=== PATIENT | female | born 1960 | race Caucasian/White ===

== ENCOUNTER → 2021-02-07 07:37 | Outpatient (CLI) | payer BC, SELFPAY ==
--- NOTE | ~2021-02-07 | XR_ITS ---
EXAMINATION: XR knee LT 2V DATE: 02/07/2021 07:53 INDICATION: Left knee pain. TECHNIQUE: 2 views of left knee standing were obtained. COMPARISON: None. FINDINGS: Bone alignment is normal. No fracture. There is mild osteoarthritis of medial and lateral c ompartments. No knee joint effusion. IMPRESSION: 1. Mild left knee osteoarthritis. Reviewed, dictated and finalized at location A.
--- NOTE | ~2021-02-07 | XR_ITS ---
EXAMINATION: XR knee RT 2V DATE: 02/07/2021 07:53 INDICATION: Right knee pain. TECHNIQUE: 2 views of right knee standing were obtained. COMPARISON: None. FINDINGS: Bone alignment is normal. No fracture. There is moderate osteoarthritis of medial and mild osteoarthritis of lateral compartment. No knee joint effusion. IMPRESSION: 1. Moderate right knee osteoarthritis. Reviewed, dictated and finalized at location A.
== END ==
PROVIDERS: PCP Family Medicine; Visit Provider Physician Assistant Medical
DX: M17.0 Bilateral primary osteoarthritis of knee (principal)
CPT/HCPCS: 73560

== ENCOUNTER → 2022-05-06 16:17 | Outpatient (CLI) | payer BC, SELFPAY ==
--- NOTE | ~2022-05-06 | XR_ITS ---
XR knee RT 3V 05/06/2022 16:28 Indication: Right knee pain Procedure: 3 views right knee Comparison: 02/07/2021 Findings: There is mild osteoarthritis of the right knee. No fracture, subluxation or dislocation. No joint effusion. No foreign bodies. Impression: 1: Mild osteoarthritis of the right knee. Reviewed, dictated and finalized at location B. Impression: 1: Mild osteoarthritis of the right knee.
== END ==
PROVIDERS: PCP Family Medicine; Visit Provider Nurse Practitioner Family
DX: M17.11 Unilateral primary osteoarthritis, right knee (principal)
CPT/HCPCS: 73562

== ENCOUNTER 2023-05-02 09:10 | Emergency (ER) | payer BC, SELFPAY ==
--- NOTE | 2023-05-02 09:15 | ED.BACK ---
HPI - Back Pain/Injury General Chief Complaint: Back Pain/Injury Stated Complaint: lower back pain left side/ left leg pain Time Seen by Provider: 05/02/23 10:12 Source: patient and RN notes reviewed Mode of arrival: ambulatory Limitations: no limitations History of Present Illness HPI Narrative: 62-year-old female presents concern for left lower back pain. Reports symptoms started about a month ago when she was on a long road trip to [place]. Reports it has been on and off since then. Reports over the last week it has been constant. She reports it is radiating down her left leg. She denies loss of bowel or bladder function, denies, perianal anesthesia, weakness in any extremity, denies abdominal pain or spinal tenderness. She reports history of problems with her back, she has had several back surgeries and has hardware in her back. She does have a neurologist that she has not had to see him in a while. She reports she has been using ibuprofen, meloxicam, muscle rubs, heat, ice without relief. She reports sitting exacerbates pain, moving positions exacerbates pain. MD elicited complaint: back pain Related Data Allergies Allergy/AdvReac Type Severity Reaction Status Date / Time prochlorperazine Allergy Severe Swelling Verified 05/02/23 09:48 promethazine Allergy Severe Swelling Verified 05/02/23 09:48 Review of Systems Review of Systems: CONSTITUTIONAL: Denies malaise, chills, sweats, or fever. CARDIOVASCULAR: Denies chest pain, palpitations, or edema. RESPIRATORY: Denies cough or dyspnea. GASTROINTESTINAL: Denies abdominal pain, nausea, vomiting, diarrhea, loss of bowel function GENITOURINARY: Denies dysuria, hematuria, frequency, loss of bladder function. SKIN: Denies rash or itching. MUSCULOSKELETAL: Reports left low back pain radiating to the left leg NEUROLOGIC: Denies numbness, weakness, or headache. All systems reviewed & are unremarkable except as noted in HPI and below PMFSH Past Medical History Medical History Adult BMI 36.0-36.9 kg/sq m BMI 35.0-35.9,adult Family History Family History Father Family history of coronary artery disease Hypertension Mother Thyroid activity decreased Sibling Hypertension Diabetes mellitus Social History Social History Smoking status: Never smoker Second hand tobacco smoke exposure: No Alcohol intake: never Substance use: never Substance use type: does not use Lack of Transportation: No Lack of Food: Never True Current Housing: I Have Housing Concerned About Future Housing: No Difficulty Paying Gas/Electric Bills: No Difficulty Paying for Meds: No Currently Unemployed: No Education: High School Diploma/GED Difficulty w/ Childcare or Family Care: No Living arrangements: with family Occupation/Education: occupation 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 Gender identity (if verbalized by the patient): Female Comments At time of signature, agree with nursing past medical, surgical, social and family history. There is no relevant family history pertinent to the presenting complaint Exam Narrative: GENERAL: Well-appearing, well-nourished, and in no acute distress. HEAD: Normocephalic, atraumatic. EYES: PERRLA and EOMI. NECK: Supple. No lymphadenopathy. CHEST: Clear to auscultation. No respiratory distress. HEART: Regular rate and rhythm. Distal pulses palpable and equal, cap refill <3 seconds ABDOMEN: Soft, nontender, nondistended, normal active bowel sounds, no palpable or pulsatile masses. No CVA tenderness MUSCULOSKELETAL: Normal range of motion and strength in all extremities; 5/5 strength with hip flexion and extension, dorsiflexion and extension, knee flexion and extension, plantar flexion and exte
[2023-05-02 09:30] VITALS: BP 122/74; PULSE 74; RESP 16; TEMP 36.3; O2SAT 99
== END 2023-05-02 10:25 | disposition home or self-care (01) ==
PROVIDERS: Emergency Provider Nurse Practitioner; PCP Family Medicine
DX: M54.50 Low back pain, unspecified (principal)
CPT/HCPCS: 99213; G0463

== ENCOUNTER 2023-05-12 16:02 | Emergency (ER) | payer BC, SELFPAY ==
--- NOTE | 2023-05-12 16:08 | ED.ALLEREA ---
HPI - Allergic Reaction General Chief complaint: Allergic Reaction Stated complaint: Allergic Reaction Time Seen by Provider: 05/12/23 16:12 Source: patient and RN notes reviewed Mode of arrival: ambulatory Limitations: no limitations History of Present Illness HPI narrative: 62-year-old female presents with concern for allergic reaction. She reports she ate tuna for lunch today and short while later began having an upset stomach, she then developed a rash on her bilateral arms. She reports now her tongue feels itchy. She denies vomiting or diarrhea. Denies lip swelling, tongue swelling. She denies any history of allergies to tuna. complaint: allergic reaction Related Data Allergies Allergy/AdvReac Type Severity Reaction Status Date / Time prochlorperazine Allergy Severe Swelling Verified 05/12/23 16:16 promethazine Allergy Severe Swelling Verified 05/12/23 16:16 Review of Systems Review of Systems: CONSTITUTIONAL: Denies malaise, chills, sweats, or fever. EYES: Denies redness, or discharge. ENT: Denies rhinorrhea, congestion, swollen lips, swollen tongue. Reports itchy tongue CARDIOVASCULAR: Denies chest pain, palpitations, or edema. RESPIRATORY: Denies cough or dyspnea. GASTROINTESTINAL: Denies abdominal pain, nausea, vomiting SKIN: Reports rash bilateral forearms MUSCULOSKELETAL: Denies joint pain or myalgia. NEUROLOGIC: Denies headache. All systems reviewed & are unremarkable except as noted in HPI and below PMFSH Past Medical History Medical History Adult BMI 36.0-36.9 kg/sq m BMI 33.0-33.9,adult BMI 35.0-35.9,adult Family History Family History Father Family history of coronary artery disease Hypertension Mother Thyroid activity decreased Sibling Hypertension Diabetes mellitus Social History Social History Smoking status: Never smoker Second hand tobacco smoke exposure: No Alcohol intake: never Substance use: never Substance use type: does not use Lack of Transportation: No Lack of Food: Never True Current Housing: I Have Housing Concerned About Future Housing: No Difficulty Paying Gas/Electric Bills: No Difficulty Paying for Meds: No Currently Unemployed: No Education: High School Diploma/GED Difficulty w/ Childcare or Family Care: No Living arrangements: with family Occupation/Education: occupation 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 Gender identity (if verbalized by the patient): Female Comments At time of signature, agree with nursing past medical, surgical, social and family history. There is no relevant family history pertinent to the presenting complaint Exam Narrative: GENERAL: Well-appearing, well-nourished, and in no acute distress. HEAD: Normocephalic, atraumatic. EYES: PERRLA, conjunctivae clear, and EOMI. ENT: Mucous membranes moist. Oropharynx and tongue without edema, erythema or lesions. NECK: Supple. No lymphadenopathy CHEST: Clear to auscultation. No respiratory distress. HEART: Regular rate and rhythm. SKIN: Warm, dry. Urticarial rash noted on bilateral forearms, no other rash noted NEURO: Alert and oriented x3. PSYCH: Normal mood and affect Course Course Emergency Course: Patient is aware of diagnosis, understands and agrees to treatment plan. Anticipatory guidance given. Patient agrees to follow-up as directed and is aware of reasons to seek care at the emergency department. Portions of this record may have been created with voice recognition software Level of Care: Express Care Visit Vital Signs Vital signs: Reviewed. MDM - Allergic Reaction MDM Narrative Medical decision making narrative: No soft palate or uvula edema, no tongue or lip edema or other mucosal involvement, no respirat
[2023-05-12 16:15] VITALS: BP 130/76; PULSE 80; RESP 16; TEMP 36.8; O2SAT 100
[2023-05-12] MEDS: diphenhydrAMINE HCL ELIXIR 12.5 MG/5 ML UDC 25 MG PO (16:29)
[2023-05-12] MEDS: methylPREDNISolone SOD SUCC 125 MG VIAL IM (16:29)
== END 2023-05-12 16:57 | disposition home or self-care (01) ==
PROVIDERS: Emergency Provider Nurse Practitioner; PCP Family Medicine
DX: L50.0 Allergic urticaria (principal)
CPT/HCPCS: 96372; 99213; A9270; G0463; J2930

== ENCOUNTER 2023-05-19 14:24 | Outpatient (RCR) | payer BC, SELFPAY ==
--- NOTE | 2023-05-19 16:24 | PTOPEVAL1 ---
Assessment and note entered by Alvino Samano, PT, DPT Evaluation Information Assessment Status Evaluation Diagnosis L lower back pain Subjective Information Pt states she has 6 screws and 2 rods in her back so she knows what back pain in and states this is not back pain, that this is her sciatic nerve. She states she probably would not have come but she is having numbness in the front of her L thigh. She states they recently did a long road trip and it has been bothering her since. Reported Pain Level Pain Score 0: Self Report Assessment PT Clinical Summary Hollie presents to therapy today for her initial evaluation with a diagnosis of jarrett back pain and sciatic nerve irritation. Today she demonstrates tenderness to palpation to the L piriformis and her primary pain is reproduced with a passive piriformis stretch. Today she was instructed in a HEP to address the deficits noted above. She plans to complete these and follow up in a month if needed. Plan of Care PT Services Indicated Yes Treatment Frequency and follow up in 1 month if needed Duration These treatments will address the objective and functional deficits as defined above. The patient will be advanced safely and appropriately in order for the patient to progress towards his/her prior level of function. Additional exercises will be introduced and as well as a comprehensive home exercise program upon discharge, if needed, ?to ensure carryover of functional gains achieved in the clinic. This treatment plan has been reviewed and agreement upon by the patient.
--- NOTE | 2023-06-15 08:31 | PTOPDC ---
Assessment and note entered by Alvino Samano, PT, DPT Evaluation Information Assessment Status Discharge - Pt Not Present Diagnosis L lower back pain Subjective Information Pt did not show up for her scheduled appointment today. Called pt to follow up and she states she is doing well and no longer needs to continue therapy. Assessment PT Clinical Summary Pt completed her evaluation on 05/19/23 and will be discharged at this time per request. Plan of Care PT Services Indicated No
== END 2023-06-15 10:30 | disposition home or self-care (01) ==
LOC: ANHGOSHPT 14:24
PROVIDERS: PCP Family Medicine; Visit Provider Nurse Practitioner Family
DX: M54.42 Lumbago with sciatica, left side (principal); M54.41 Lumbago with sciatica, right side
CPT/HCPCS: 97110; 97161; 99199

== ENCOUNTER 2024-04-17 08:42 | Outpatient (CLI) | payer BC, SELFPAY ==
--- NOTE | ~2024-04-17 | XR_ITS ---
XR cervical spine min 6V Ordering provider: JULIANNE Carey History: . M54.2 - Cervicalgia . Comparison: None. FINDINGS: VERTEBRAL BODIES: Minimal retrolisthesis at the level of C4-C5. Otherwise, Normal height and alignmen t. No visible fracture or subluxation. The dens is intact. Postoperative changes at the level of C5 a nd C6. DISK SPACES: Narrowing of the disc C4-C5 and C6-C7. PARASPINOUS SOFT TISSUES: No prevertebral soft tissue swelling. IMPRESSION: No acute osseous abnormality cervical spine. Minimal retrolisthesis at the level of C4-C5. Multilevel degenerative disc disease. Reviewed, dictated and finalized at location A.
== END 2024-04-17 08:43 ==
LOC: MICIMG 08:44
PROVIDERS: PCP Family Medicine; Visit Provider Nurse Practitioner Family
DX: M50.30 Other cervical disc degeneration, unspecified cervical region (principal)
CPT/HCPCS: 72052

== ENCOUNTER 2024-05-04 06:32 | Outpatient (CLI) | payer BC, SELFPAY ==
--- NOTE | ~2024-05-04 | MR_ITS ---
MR cervical spine wo con Ordering provider: JULIANNE Carey History: 63 years Female with . M47.22 - Other spondylosis with radiculopathy, cervical r... . Comparison: None. Technique: MRI cervical spine without contrast. FINDINGS: CERVICAL SPINAL CORD/CRANIAL CERVICAL JUNCTION: Normal in signal and caliber. CERVICAL VERTEBRAL BODIES: Postoperative changes at the level of C5-C6. Hemangioma and C1 and T2. Ret rolisthesis at the level of C4-C5. Otherwise,. Normal height and alignment. Normal marrow signal. DISK SPACES: Normal. C2-C3: No stenosis. C3-C4: No stenosis. Right posterior lateral disc protrusion with slight narrowing of the right latera l recess and right intervertebral foramen with nerve root compression. C4-C5: Mild spinal canal stenosis secondary to broad based disc bulge with osteophyte. Narrowing of t he left intervertebral foramen with root compression. C5-C6: No stenosis. Slight narrowing of the right intervertebral foramen. C6-C7: No stenosis. Diffuse disc bulge with slight narrowing of the right and left intervertebral for amen more on the left with nerve root compression. C7-T1: No stenosis. VISUALIZED PARASPINOUS SOFT TISSUES: Normal. IMPRESSION: 1. Postoperative changes at the level of C5-C6 with retrolisthesis at the level of C4-C5. 2. C3-C4 right posterolateral disc protrusion with slight narrowing of the right lateral recess and right intervertebral foramen with nerve root compression. 3. Multilevel intervertebral foraminal narrowing with nerve root compression. Reviewed, dictated and finalized at location A. IMPRESSION: 1. Postoperative changes at the level of C5-C6 with retrolisthesis at the leve l of C4-C5. 2. C3-C4 right posterolateral disc protrusion with slight narrowing of the rig ht lateral recess and right intervertebral foramen with nerve root compression. 3. Multilevel intervertebral foraminal narrowing with nerve root compression.
== END 2024-05-04 06:33 | disposition home or self-care (01) ==
PROVIDERS: PCP Family Medicine; Visit Provider Nurse Practitioner Family
DX: M47.22 Other spondylosis with radiculopathy, cervical region (principal); R20.0 Anesthesia of skin; R20.2 Paresthesia of skin; M50.20 Other cervical disc displacement, unspecified cervical region
CPT/HCPCS: 72141

== ENCOUNTER 2024-07-31 10:54 | Outpatient (CLI) | payer BC, SELFPAY ==
--- NOTE | ~2024-07-31 | XR_ITS ---
XR_[id number]_CR Ordering provider: Holland Shah, History: . Arthrodesis status 06-23-24 follow up . Comparison: None. FINDINGS: VERTEBRAL BODIES: Normal height and alignment. No visible fracture or subluxation. The dens is intact . Postoperative changes seen at the levels of C3, C4-C5. DISK SPACES: Disc spacers are seen at the levels of C4 and C4-C5. Narrowing of the disc C5-C6 with fu shandra is noted. Narrowing of the disc C6-C7. Multilevel facet joint disease. Multilevel uncovertebral joint osteoarthritic changes. PARASPINOUS SOFT TISSUES: No prevertebral soft tissue swelling. IMPRESSION: No acute osseous abnormality cervical spine. Postoperative changes. Multilevel degenerative disc disease. Reviewed, dictated and finalized at location A. ADVISOR
== END 2024-07-31 10:55 | disposition home or self-care (01) ==
PROVIDERS: PCP Neurological Surgery; Visit Provider Neurological Surgery
DX: Z98.1 Arthrodesis status (principal); M50.30 Other cervical disc degeneration, unspecified cervical region
CPT/HCPCS: 72040

== ENCOUNTER 2024-08-28 09:37 | Outpatient (CLI) | payer BC, SELFPAY ==
--- NOTE | ~2024-08-28 | XR_ITS ---
XR_[id number]_CR Ordering provider: Holland Shah, History: . Arthrodesis status . Comparison: July 31, 2024 FINDINGS: VERTEBRAL BODIES: Normal height and alignment. No visible fracture or subluxation. The dens is intact . Postoperative changes at the level of C3 , C4 and C5. DISK SPACES: Disc spacers at the level of C3-C4, and C4-C5. Narrowing of the disc C5-C6 and C6-C7. Mu ltilevel facet joint disease. PARASPINOUS SOFT TISSUES: No prevertebral soft tissue swelling. IMPRESSION: No acute osseous abnormality cervical spine. Postoperative changes. Reviewed, dictated and finalized at location A. ROLLING MACHINE OPERATOR
== END 2024-08-28 09:38 | disposition home or self-care (01) ==
LOC: MICIMG 09:39
PROVIDERS: PCP Family Medicine; Visit Provider Neurological Surgery
DX: Z98.1 Arthrodesis status (principal)
CPT/HCPCS: 72040

== ENCOUNTER 2024-09-01 10:45 | Outpatient (RCR) | payer BC, SELFPAY ==
--- NOTE | 2024-08-16 10:57 | OPREHPOC ---
Outpatient Therapy Plan of Care This is a Multidisciplinary Plan of Care that may contain components documented by all disciplines (PT, OT, and ST.) PT Problem 1 PT Problem #1 Knowledge Deficit PT Goal 1 Goal / Goal Update [place] with HEP Target Visit 4 PT Goal 2 Goal / Goal Update Report no pain greater than 1/10 consistently for 2 weeks Target Visit 4 PT Problem 2 PT Problem #2 Impaired Range of Motion PT Goal 1 Goal / Goal Update 1. Improve jarrett cervical rotation to 50 degrees for improved functional field of view 2. Improve cervical flexion ROM to 30 degrees to improve upper trapezius restriction and functional mobility Target Visit 8 PT Problem 3 PT Problem #3 Impaired Strength PT Goal 1 Goal / Goal Update Improve jarrett periscapular strengthening to 4/5 to improve shoulder girdle stability and postural strength Target Visit 8
--- NOTE | 2024-08-16 10:57 | PTOPEVAL1 ---
Assessment and note entered by Ishan Cagle, PT Evaluation Information Assessment Status Evaluation Diagnosis S/p fusion C3-C6 ICD-10 Condition Codes (PT) Cervicalgia M54.2 Onset 06/23/24 Subjective Information Reports that overall she is doing a bit better. She is getting some headaches which are brought on by neck flexion at this time. Pain is localized to her neck. In the past couple of weeks she has been noticing some numbness in bilateral hands. She is right handed and recently retired. She is sleeping much better than she was prior to surgery . Reported Pain Level Pain Score 2: Self Report Assessment PT Clinical Summary Patient presents with signs and symptoms typical of post operative fusion. Patient has limited cervical motion, weakness of shoulder girdle, and tenderness with palpation. Patient will benefit from skilled therapy to address these deficits to improve functional ROM and function of postural cervical spine. Plan of Care Interventions Electrical Stimulation,Hot Pack/Cold Pack,Manual Therapy,Neuro Re-education,Therapeutic Activities, Therapeutic Exercise PT Services Indicated Yes Treatment Frequency and 2x/week for 8 visits Duration These treatments will address the objective and functional deficits as defined above. The patient will be advanced safely and appropriately in order for the patient to progress towards his/her prior level of function. Additional exercises will be introduced and as well as a comprehensive home exercise program upon discharge, if needed, ?to ensure carryover of functional gains achieved in the clinic. This treatment plan has been reviewed and agreement upon by the patient.
== END 2024-11-14 23:59 | disposition home or self-care (01) ==
LOC: ANHPT 10:45
PROVIDERS: PCP Neurological Surgery; Visit Provider Neurological Surgery
DX: Z98.1 Arthrodesis status (principal)
CPT/HCPCS: 97014; 97110; 97140; 97161; G0283